=== PATIENT | female | born 1975 | race American Indian/Alaskan Native ===

== ENCOUNTER 2016-12-13 06:51 | Outpatient (CLI) | payer BC ==
--- NOTE | 2016-12-13 11:36 | XRay Report ---
Lumbar spine series: Lumbago. Positioning of the spine in the lateral projection is somewhat limited for evaluation interspaces but the combination of views shows no significant narrowing. The vertebral height, alignment, and bony mineralization is generally unremarkable. The apophyseal joints are well aligned and preserved. Impression: Suboptimal positioning. No abnormality identified.
== END 2016-12-13 06:52 | disposition home or self-care (01) ==
LOC: XRAY 06:51
PROVIDERS: ATTEND Internal Medicine
DX: M54.5 Low back pain (principal)
CPT/HCPCS: 72110

== ENCOUNTER 2017-07-16 10:07 | Outpatient (CLI) | payer BC ==
--- NOTE | 2017-07-16 14:43 | Mammography Report ---
BILATERAL MAMMOGRAM: FINDINGS: There are scattered fibroglandular densities (approximately 25%-50% glandular). No mass, distortion, suspicious calcification, or skin change is seen. No significant change when compared to exams dating back to 2015. CAD was utilized. IMPRESSION: Negative mammogram. There is no mammographic evidence of malignancy. RECOMMENDATION: Follow-up per ACS guidelines. BI-RADS CATEGORY: 1 = Negative ACR BI-RADS MAMMOGRAPHIC CODES: 0 = Needs additional imaging evaluation; 1 = Negative; 2 = Benign; 3 = Probably benign; 4 = Suspicious; 5 = Malignant; 6 = Known biopsy-proven malignancy COMMENT: 1. Dense breast tissue, i.e., adenosis, fibrocystic changes, etc., may obscure an underlying neoplasm. 2. Approximately 10% of cancers are not detected with mammography. 3. A negative mammography report should not delay biopsy if a clinically suspicious mass is present. COMMENT: Patient follow-up letters are generated in [employer].
== END 2017-07-16 10:08 | disposition home or self-care (01) ==
LOC: MAMMO 10:07
PROVIDERS: ATTEND Internal Medicine
DX: Z12.31 Encounter for screening mammogram for malignant neoplasm of breast (principal); I10 Essential (primary) hypertension; K21.9 Gastro-esophageal reflux disease without esophagitis
CPT/HCPCS: 77067; G0202

== ENCOUNTER 2017-09-04 19:17 | Emergency (ER) | payer BC ==
[2017-09-04] MEDS ORDERED: ASPIRIN ONE (20:37)
[2017-09-04] MEDS ORDERED: ASPIRIN PO ONE (20:44)
[2017-09-04 21:26] LABS: Basophils # (Auto) 0.1 K/mm3 (0.0-0.1); Basophils % (Auto) 0.6 % (0.0-1.8); Eosinophils # (Auto) 0.1 K/mm3 (0.0-0.4); Eosinophils % (Auto) 0.8 % (0.0-4.3); Hematocrit 33.3 % (30.3-42.9); Hemoglobin 10.9 gm/dl (10.1-14.3); Lymphocytes # (Auto) 2.7 K/mm3 (1.2-5.4); Lymphocytes % (Auto) 28.5 % (13.4-35.0); Mean Corpuscular HGB Conc 33 % (30-34); Mean Corpuscular Hemoglobin 25 pg (28-32); Mean Corpuscular Volume 78 fl (79-97); Monocytes # (Auto) 0.9 K/mm3 (0.0-0.8); Platelet Count 331 K/mm3 (140-440); Red Blood Count 4.29 M/mm3 (3.65-5.03); Red Cell Distribution Width 18.2 % (13.2-15.2)
[2017-09-04 21:49] LABS: BUN/Creatinine Ratio 27; Blood Urea Nitrogen 16 mg/dL (7-17); Calcium 8.6 mg/dL (8.4-10.2); Hemolysis Index 1
[2017-09-05] MEDS ORDERED: ULTRAM PO ONE (02:45)
[2017-09-05 02:53] VITALS: BP 161/95
--- NOTE | 2017-09-05 03:27 | Emergency Department Report ---
ED Chest Pain HPI - General Chief Complaint: Chest Pain Stated Complaint: CHEST TIGHTNESS/ARM/SHOULDER PAIN Time Seen by Provider: 09/05/17 02:32 Source: patient Mode of arrival: Ambulatory Limitations: No Limitations - History of Present Illness Initial Comments: 42-year-old female with a past medical history of GERD, sickle cell trait, and previous hypertension in month status post cholecystectomy that spontaneously resolved presents to the hospital complains of chest tightness since 2 PM. 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 Symptoms occur while at rest at work. Patient stated at the same time she developed a dry cough with chills. Pain starts in the chest and radiates to bilateral chest. Pain is worse to palpation, cough, and movement. Denies shortness of breath, nausea, vomiting, or diaphoresis. Patient denies smoking history. Her mother had [place] in her 60s but also had a history of diabetes and hypertension. Patient did receive a flu shot. Patient last saw her PMD Dr. Sanchez last year 2016. Severity scale (0 -10): 4 - Related Data Home Medications Medication Instructions Recorded Confirmed Last Taken Doxycycline Hyclate [Acticlate TAB] 150 mg PO DAILY 07/12/15 07/14/15 2 Weeks Ago ~06/30/15 Omeprazole [PriLOSEC] 20 mg PO QDAY 07/12/15 07/14/15 07/14/15 06:30 Zolpidem [Ambien] 10 mg PO QHS 07/12/15 07/14/15 07/12/15 Previous Rx's Medication Instructions Recorded Last Taken Type Doxycycline [Vibramycin CAP] 100 mg PO Q12HR #14 capsule 07/14/15 Unknown Rx Ibuprofen [Motrin] 800 mg PO Q8HR PRN #30 tablet 07/14/15 Unknown Rx medroxyPROGESTERone ACETATE 10 mg PO QDAY #10 tablet 07/14/15 Unknown Rx [Provera] Fluconazole [Diflucan TAB] 150 mg PO ONCE #1 tablet 11/02/15 Unknown Rx Loperamide [Imodium] 2 mg PO Q2HR PRN #20 capsule 11/02/15 Unknown Rx Ondansetron [Zofran TAB] 4 mg PO Q8HR PRN #20 tablet 11/02/15 Unknown Rx Benzonatate [Tessalon Perles] 100 mg PO Q8HR PRN #30 capsule 09/05/17 Unknown Rx amLODIPine [Norvasc] 5 mg PO DAILY #30 tab 09/05/17 Unknown Rx traMADol [Ultram 50 MG tab] 50 mg PO Q6HR PRN #20 tablet 09/05/17 Unknown Rx Allergies Allergy/AdvReac Type Severity Reaction Status Date / Time sulfamethoxazole AdvReac Severe BURNING,ITCHING,PAINFUL Verified 07/12/15 11:17 [From Bactrim] ALL OVER trimethoprim [From Bactrim] AdvReac Severe BURNING,ITCHING,PAINFUL Verified 11:17 ALL OVER Heart Score - HEART Score History: Slightly suspicious EKG: Normal Age: < 45 Risk factors: > 3 risk factors or hx of atherosclerotic disease Troponin: < normal limit HEART Score: 2 ED Review of Systems ROS: Stated complaint: CHEST TIGHTNESS/ARM/SHOULDER PAIN Other details as noted in HPI Comment: All other systems reviewed and negative Other: Constitutional: No fevers chills Eyes: No eye pain visual changes ENT: No ear pain or throat pain Neck: Denies pain Respiratory: Denies wheezing shortness of breath Cardiovascular: Denies palpitations, syncope GI: Denies abdominal pain, nausea, vomiting, diarrhea : Denies dysuria Musculoskeletal: Denies back pain, joint swelling Skin: Denies rash, lesions, erythema Neurologic: Denies headache, numbness, weakness Psychiatric: Denies suicidal ideation, hallucinations ED Past Medical Hx - Past Medical History Previous Medical History?: Yes Hx Hypertension: Yes (prior tx w/meds x1 mo then BP normalized) Hx GERD: Yes Hx Renal Disease: No Hx Sickle Cell Disease: Yes (SS trait only) Hx Headaches / Migraines: Yes Hx Asthma: No Additional medical history: boils - Surgical History Past Surgical History?: Yes Hx Cholecystectomy: Yes Additional Surgical History: Tubal ligation 2004 - Social History Smoking Status: Never Smoker Substance Use Type: None - Medications Home Medications: Home Medications Medication Instructions Recorded Confirmed Last Taken Type Doxycycline Hyclate [Acticlate TAB] 150 mg PO DAILY 07/12/15 07/14/15 2 Weeks Ago History ~06/30/15 Omeprazole [PriLOSEC] 20 mg PO QDAY 07/12/15 07/14/15 07/14/15 06:30 History Zolpidem [Ambien] 10 mg PO QHS 07/12/15 07/14/1507/12/15 History Doxycycline [Vibramycin CAP] 100 mg PO Q12HR #14 capsule 07/14/15 Unknown Rx Ibuprofen [Motrin] 800 mg PO Q8HR PRN #30 tablet 07/14/15 Unknown Rx medroxyPROGESTERone ACETATE 10 mg PO QDAY #10 tablet 07/14/15 Unknown Rx [Provera] Fluconazole [Diflucan TAB] 150 mg PO ONCE #1 tablet 11/02/15 Unknown Rx Loperamide [Imodium] 2 mg PO Q2HR PRN #20 capsule 11/02/15 Unknown Rx Ondansetron [Zofran TAB] 4 mg PO Q8HR PRN #20 tablet 11/02/15 Unknown Rx Benzonatate [Tessalon Perles] 100 mg PO Q8HR PRN #30 capsule 09/05/17 Unknown Rx amLODIPine [Norvasc] 5 mg PO DAILY #30 tab 09/05/17 Unknown Rx traMADol [Ultram 50 MG tab] 50 mg PO Q6HR PRN #20 tablet 09/05/17 Unknown Rx ED Physical Exam - General Limitations: No Limitations - Other Other exam information: General: No limitations, patient is alert in no acute distress Head exam: Atraumatic, normocephalic Eyes exam: Normal appearance ENT: Moist mucous membrane, normal oropharynx Neck exam: Normal inspection, full range of motion, no meningismus nontender Respiratory exam: Clear to auscultation bilateral, no wheezes, rales, crackles Cardiovascular: Normal rate and rhythm, sternal chest wall tenderness and mild right sided chest wall tenderness Abdomen: Soft, nondistended, and nontender, with normal bowel sounds, no rebound, or guarding Extremity: Full range of motion normal inspection no deformity, no calf tenderness or edema Back: Normal Inspection, full range of motion, no tenderness Neurologic: Alert, oriented x3, cranial nerves intact, no motor or sensory deficit Psychiatric: normal affect, normal mood Skin: Warm, dry, intact ED Course Vital Signs 09/04/17 09/05/17 20:30 02:52 Temperature 98.7 F Pulse Rate 81 79 Respiratory 16 17 Rate Blood Pressure 179/96 Blood Pressure 161/95 [Left] O2 Sat by Pulse 100 99 Oximetry - Reevaluation(s) Reevaluation #1: 09/05/17 04:30 Patient reports the pain improved with tramadol. ZEUS score - Zeus Score Age > 65: (0) No Aspirin use within the Past 7 Days: (0) No 3 or more CAD Risk Factors: (0) No 2 or more Angina events in past 24 hrs: (0) No Known CAD with more than 50% Stenosis: (0) No Elevated Cardiac Markers: (0) No ST Deviation Greater than 0.5mm: (0) No ZEUS Score: 0 ED Medical Decision Making - Lab Data Result diagrams: 09/04/17 21:13 09/04/17 21:13 Lab Results 09/04/17 09/04/17 09/04/17 Range/Units 21:13 21:13 23:43 WBC 9.4 (4.5-11.0) K/mm3 RBC 4.29 (3.65-5.03) M/mm3 Hgb 10.9 (10.1-14.3) gm/dl Hct 33.3 (30.3-42.9) % MCV 78 L (79-97) fl MCH 25 L (28-32) pg MCHC 33 (30-34) % RDW 18.2 H (13.2-15.2) % Plt Count 331 (140-440) K/mm3 Lymph % (Auto) 28.5 (13.4-35.0) % [place] % (Auto) 10.0 H (0.0-7.3) % Eos % (Auto) 0.8 (0.0-4.3) % Baso % (Auto) 0.6 (0.0-1.8) % Lymph # 2.7 (1.2-5.4) K/mm3 [place] # 0.9 H (0.0-0.8) K/mm3 Eos # 0.1 (0.0-0.4) K/mm3 Baso # 0.1 (0.0-0.1) K/mm3 Seg Neutrophils % 60.1 (40.0-70.0) % Seg Neutrophils # 5.7 (1.8-7.7) K/mm3 Sodium 140 (137-145) mmol/L Potassium 4.0 (3.6-5.0) mmol/L Chloride 103.1 (98-107) mmol/L Carbon Dioxide 22 (22-30) mmol/L Anion Gap 19 mmol/L BUN 16 (7-17) mg/dL Creatinine 0.6 L (0.7-1.2) mg/dL Estimated GFR > 60 ml/min BUN/Creatinine Ratio 27 % Glucose 100 (65-100) mg/dL Calcium 8.6 (8.4-10.2) mg/dL Troponin T < 0.010 < 0.010 (0.00-0.029) ng/mL - EKG Data -: EKG Interpreted by Me EKG shows normal: sinus rhythm (81), axis (11), QRS complexes (90), ST-T waves ( no stemi/t inv LVH) - EKG Data When compared to previous EKG there are: previous EKG unavailable 09/05/17 04:47 Repeat EKG performed at 4:37 AM does not show any acute changes compared to previous - Radiology Data Radiology results: report reviewed read by radiologist: cxr: naf - Medical Decision Making Chest pain is atypical and reproducible on palpation and patient reports a mild cough. Clinically suggestive of costochondritis and possible early viral syndrome. EKG shows LVH even though patient denies long-standing hypertension she is hypertensive in the ED on 2 measurements. Norvasc 5 mg will be initiated. Patient's pain improved with tramadol. She has 3 sets of negative cardiac enzymes. No flipped T waves, ST elevation, or ST segment depression. Patient scores low on both ZEUS and Heart score. Repeat EKG reveals no acute changes. Patient was discharged home with symptomatic treatment for pain in addition to the Norvasc. She has appointment scheduled with her PMD in 8 days and was instructed to call to see if she could be seen sooner and to return if symptoms worsen. - Differential Diagnosis mi, costochondritis, atypical cp, pnemonia, viral syndrome Critical Care Time: No Critical care attestation.: If time is entered above; I have spent that time in minutes in the direct care of this critically ill patient, excluding procedure time. ED Disposition Clinical Impression: Costochondritis, acute, Cough, HTN (hypertension) Disposition: - TO HOME OR SELFCARE Is pt being admited?: No Does the pt Need Aspirin: No Condition: Stable Instructions: Hypertension (ED), Costochondritis (ED), Cold Symptoms (ED) Additional Instructions: If your cold symptoms develop make sure that you only take [id number] medications that are safe with people and hypertension. This includes the Coricidin HBP cough and cold medicine brand. You have been started on a low- dose blood pressure medication. Continue to monitor and record at home and follow up with your doctor for further management. Take the medication as prescribed. Return is symptoms worsen as indicated by your discharge instructions Prescriptions: amLODIPine [Norvasc] 5 mg PO DAILY #30 tab Benzonatate [Tessalon Perles] 100 mg PO Q8HR PRN #30 capsule PRN Reason: Cough traMADol [Ultram 50 MG tab] 50 mg PO Q6HR PRN #20 tablet PRN Reason: Pain Referrals: RC SANCHEZ MD [Primary Care Provider] - 3-5 Days Time of Disposition: 04:49
--- NOTE | 2017-09-05 03:38 | XRay Report ---
FINAL REPORT EXAM: XR CHEST ROUTINE 2V HISTORY: cp, cough, chills COMPARISON: None available. FINDINGS:: Frontal and lateral views of the chest obtained. Heart upper limits normal in size. Shallow inspiration.. No focal consolidation or effusion. No pneumothorax. Visualized bony thorax is grossly intact. IMPRESSION:: No focal consolidation.
[2017-09-05] MEDS ORDERED: NORVASC PO ONE (04:28)
== END 2017-09-05 05:01 | disposition home or self-care (01) ==
LOC: ED 19:17
DX: M94.0 Chondrocostal junction syndrome [Tietze] (principal); I10 Essential (primary) hypertension; K21.9 Gastro-esophageal reflux disease without esophagitis; G43.909 Migraine, unspecified, not intractable, without status migrainosus; Z88.1 Allergy status to other antibiotic agents; Z88.2 Allergy status to sulfonamides
CPT/HCPCS: 36415; 71046; 80048; 84484; 85025; 93005; 93010; 99284

== ENCOUNTER 2017-09-19 09:41 | Outpatient (CLI) | payer BC ==
--- NOTE | 2017-09-19 13:30 | Magnetic Resonance Report ---
MRI LUMBAR SPINE WITHOUT CONTRAST: 09/19/17 CLINICAL: Lumbar radiculopathy. TECHNIQUE: Sagittal and axial T1 and T2, and sagittal STIR sequences a 1.5 Genoveva magnet. FINDINGS: Normal body height, alignment and disc spaces. Decreased T2 disc signal L2-L5 but most prominent at L4-5. The marrow signal is normal. Normal conus medullaris terminating at T12. L1-2: Intact. L2-3: Small focal left foraminal disc protrusion producing mild left neural foraminal narrowing and displacement of the exiting left L2 nerve root. L3-4: Small left foraminal disc-osteophyte producing mild left neural foraminal stenosis and slight displacement of the exiting L3 nerve root. L4-5: Small left foraminal disc-osteophyte producing mild left neural foraminal stenosis and no displacement of the exiting left L4 nerve root. L5-S1: Intact. IMPRESSION: Mild degenerative disease with small disc protrusions and small disc-osteophytes on the left side at L2-3 through L4-5. Mild impingement of the exiting left L2 and L3 nerve roots.
== END 2017-09-19 09:42 | disposition home or self-care (01) ==
LOC: MRI 09:41
PROVIDERS: ATTEND Internal Medicine
DX: M51.36 Other intervertebral disc degeneration, lumbar region (principal); M51.26 Other intervertebral disc displacement, lumbar region; M54.15 Radiculopathy, thoracolumbar region; M25.80 Other specified joint disorders, unspecified joint
CPT/HCPCS: 72148

== ENCOUNTER 2017-11-26 09:37 | Outpatient (CLI) | payer BC ==
--- NOTE | 2017-11-26 10:53 | Ultrasound Report ---
ULTRASOUND TRANSVAGINAL HISTORY: Intramural leiomyoma of uterus. COMPARISON: Pelvic ultrasound dated 10/14/13. TECHNIQUE: Transabdominal and transvaginal ultrasound with color doppler interrogation. FINDINGS: Uterus: The uterus is anteverted. The uterus measures 8.6 x 4.7 x 5.2 cm. A single 1.2 x 1.0 cm intramural fibroid is identified in the posterior fundal region. No additional fibroids are detected. Normal cervix. Endometrium: 5 mm. No abnormality. Right ovary: 2.8 x 2.0 x 2.4 cm. No focal abnormality. Left ovary: 3.1 x 1.0 x 1.9 cm. No focal abnormality. No pelvic fluid or mass is identified. Normal color doppler interrogation. IMPRESSION: Small intramural uterine fibroid in the posterior fundal region as described. Otherwise, unremarkable transvaginal ultrasound.
== END 2017-11-26 09:38 | disposition home or self-care (01) ==
LOC: US 09:37
PROVIDERS: ATTEND Obstetrics & Gynecology
DX: D25.1 Intramural leiomyoma of uterus (principal)
CPT/HCPCS: 76830

== ENCOUNTER 2017-12-03 11:36 | Outpatient (CLI) | payer BC ==
--- NOTE | 2017-12-03 16:28 | Ultrasound Report ---
LEFT DIGITAL DIAGNOSTIC MAMMOGRAM with CAD and LEFT BREAST ULTRASOUND: 12/03/17 11:36:00 CLINICAL: A palpable left breast lump. COMPARISON:07/16/17 mammogram FINDINGS: The breast is mostly fatty with a few residual fibroglandular densities. An asymmetry is identified at the palpable marker in the inner breast on the spot magnification view but the other views are negative.No mass, architectural distortion or suspicious calcifications. Ultrasound of the left breast was performed in the area where the patient describes a lump at 6 o'clock. The ultrasound demonstrates normal fibroglandular and fatty structures with no mass, cyst or shadowing. IMPRESSION: Probably benign findings. BI-RADS CATEGORY: 3 - - Probably Benign RECOMMENDATION: A short term (3 month) followup left mammogram and left breast ultrasound if needed. The patient should be scheduled at [facility] for the followup so that a physician will be on hand at the time of the examination. ACR BI-RADS MAMMOGRAPHIC CODES: 0 = Needs additional imaging evaluation; 1 = Negative; 2 = Benign; 3 = Probably benign; 4 = Suspicious; 5 = Malignant; 6 = Known biopsy-proven malignancy COMMENT: 1. Dense breast tissue, i.e., adenosis, fibrocystic changes, etc., may obscure an underlying neoplasm. 2. Approximately 10% of cancers are not detected with mammography. 3. A negative mammography report should not delay biopsy if a clinically suspicious mass is present. COMMENT: Patient follow-up letters are generated by our [employer] application.
== END 2017-12-03 11:37 | disposition home or self-care (01) ==
LOC: MAMMO 11:36
PROVIDERS: ATTEND Internal Medicine
DX: N63.20 Unspecified lump in the left breast, unspecified quadrant (principal); N64.89 Other specified disorders of breast

== ENCOUNTER 2017-12-11 11:06 | Day surgery (SDC) | payer BC ==
[~2017-12-11 11:06] MED LIST: WATER FOR IRRIG STERILE IR ONE
[2017-12-11] MEDS ORDERED: NACL 0.9% 1000 ML 1,000 ML ONE (11:35)
--- NOTE | 2017-12-11 12:42 | Anesthesia Day of Surgery ---
Anesthesia Day of Surgery - Day of Surgery Patient Examined: Yes Patient H&P Reviewed: Yes Patient is NPO: Yes
--- NOTE | 2017-12-11 12:42 | Anesthesia Consultation ---
Anesthesia Consult and Med Hx Date of service: 12/11/17 - Airway Anesthetic Teeth Evaluation: Good ROM Head & Neck: Adequate Mental/Hyoid Distance: Adequate Mallampati Class: Class II Intubation Access Assessment: Probably Good - Pulmonary Exam CTA: Yes - Cardiac Exam Cardiac Exam: RRR - Pre-Operative Health Status ASA Pre-Surgery Classification: ASA3 Proposed Anesthetic Plan: MAC - Pulmonary Hx Smoking: No Hx Asthma: No Hx Sleep Apnea: Yes (non compliant w/ CPAP) - Cardiovascular System Hx Hypertension: Yes (prior tx w/meds x1 mo then BP normalized) - Central Nervous System Hx Psychiatric Problems: No - Gastrointestinal Hx Gastroesophageal Reflux Disease: Yes (Took Prilosec this am) - Endocrine Hx Renal Disease: No Hx Non-Insulin Dependent Diabetes: No - Hematic Hx Sickle Cell Disease: Yes (SS trait only) - Other Systems Hx Alcohol Use: Yes (occas) Hx Cancer: No Hx Obesity: Yes (BMI=35.6)
[2017-12-11] MEDS ORDERED: NACL 0.9% 1000 ML 1,000 ML IV SCH (13:00)
[2017-12-11] MEDS ORDERED: DIPRIVAN 10 MG/ML IV ONE ×2 (13:37→14:17)
[2017-12-11] MEDS ORDERED: WATER FOR IRRIG STERILE IR ONE (13:49)
--- NOTE | 2017-12-11 14:40 | Post Anesthesia Evaluation ---
- Post Anesthesia Evaluation Patient Participated: Yes Airway Patent: Yes Stable Respiratory Function: Yes Nausea/Vomiting: No Temp > 96.8F: Yes Pain Manageable: Yes Adequeate Hydration: Yes Anesthesia Complications: No Block Receding Appropriately: Not Applicable Patient on Ventilator: No
[2017-12-11 14:42] VITALS: BP 135/77
--- NOTE | 2017-12-11 14:56 | Operative Report ---
PROCEDURE: ERCP with cold biopsy and Bar dilatation. INDICATIONS: 1. Dysphagia. 2. GERD. MEDICATIONS: Propofol per [employer]. COMPLICATIONS: None. DESCRIPTION OF PROCEDURE: The patient was brought to the procedure suite. The patient had the procedure discussed with her at length. All risks, complications, and benefits discussed, after which the patient signed for the procedure to be performed. The patient was placed in left lateral decubitus position. Mouth block was placed in the patient's oral cavity. After adequate sedation medication as above, endoscope was introduced into the mouth and brought to level of the second portion of duodenum. Retroflexion view performed. The patient's vital signs remained stable throughout the procedure. FINDINGS: There was noted to be a 3 cm hiatal hernia at GE junction, which was 38 cm from the gums. There was a mild obstructing ring noted at the GE junction. The esophagus otherwise showed there was mildly inflamed Z line noted with biopsies taken and sent to pathology. The remaining esophagus otherwise appeared to be normal. There was mild antral gastritis noted. Biopsies were taken and sent to pathology. The remaining stomach otherwise appeared to be normal. Duodenum appeared to be normal. Retroflexion view performed in the stomach showed no other pathology other than noted above. After inspection, Bar dilatation using a 60-Latvian balloon was performed. Postprocedure, the patient was satisfactory. The patient tolerated the procedure well. No complications during the procedure. IMPRESSION: 1. Hiatal hernia. 2. Schatzki's ring, status post Bar dilatation. 3. Irregular Z line with biopsies performed. 4. Gastritis, biopsies performed. 5. Otherwise, normal EGD. RECOMMENDATIONS: 1. Follow up biopsy results. 2. Stool for H. pylori, if positive, we will treat. 3. PPI daily. 4. Follow up in clinic in 6-12 weeks. JOB# [id number] [facility]
== END 2017-12-11 11:07 | disposition home or self-care (01) ==
LOC: GIO 11:06
PROVIDERS: ATTEND Internal Medicine Gastroenterology
DX: K22.2 Esophageal obstruction (principal); K21.0 Gastro-esophageal reflux disease with esophagitis; K44.9 Diaphragmatic hernia without obstruction or gangrene; K22.8 Other specified diseases of esophagus; K29.50 Unspecified chronic gastritis without bleeding; G47.33 Obstructive sleep apnea (adult) (pediatric); I10 Essential (primary) hypertension; D57.3 Sickle-cell trait; E66.9 Obesity, unspecified; Z68.35 Body mass index [BMI] 35.0-35.9, adult; Z99.89 Dependence on other enabling machines and devices; Z88.1 Allergy status to other antibiotic agents; Z91.19 Patient's noncompliance with other medical treatment and regimen; Z88.2 Allergy status to sulfonamides; Z88.6 Allergy status to analgesic agent
CPT/HCPCS: 43239; 43249; 88305; 88342; J2704; J7030

== ENCOUNTER 2018-08-15 08:20 | Outpatient (CLI) | payer BC ==
--- NOTE | 2018-08-15 09:11 | Mammography Report ---
BILATERAL DIGITAL DIAGNOSTIC MAMMOGRAM with CAD: 08/15/18 08:20:00 CLINICAL: Bilateral sporadic breast pain and followup left palpable breast lump. She did not return for a three month followup of a left palpable lump as recommended 12/03/17. COMPARISON:12/03/17 left mammogram and 07/16/17 bilateral mammogram. FINDINGS: The breasts are heterogeneously dense, which may obscure small masses.No mass, architectural distortion or suspicious calcifications. IMPRESSION: Negative mammogram. BI-RADS CATEGORY: 1 - - Negative RECOMMENDATION: Clinical followup and routine mammographic screening in one year. ACR BI-RADS MAMMOGRAPHIC CODES: 0 = Needs additional imaging evaluation; 1 = Negative; 2 = Benign; 3 = Probably benign; 4 = Suspicious; 5 = Malignant; 6 = Known biopsy-proven malignancy COMMENT: 1. Dense breast tissue, i.e., adenosis, fibrocystic changes, etc., may obscure an underlying neoplasm. 2. Approximately 10% of cancers are not detected with mammography. 3. A negative mammography report should not delay biopsy if a clinically suspicious mass is present. COMMENT: Patient follow-up letters are generated by our [employer] application.
== END 2018-08-15 08:21 | disposition home or self-care (01) ==
LOC: SPVWC 08:20
PROVIDERS: ATTEND Internal Medicine
DX: R92.8 Other abnormal and inconclusive findings on diagnostic imaging of breast (principal); I10 Essential (primary) hypertension; K21.9 Gastro-esophageal reflux disease without esophagitis; Z90.49 Acquired absence of other specified parts of digestive tract
CPT/HCPCS: 77066

== ENCOUNTER 2018-10-03 08:00 | Outpatient (CLI) | payer BC ==
--- NOTE | 2018-10-03 21:38 | Treadmill Report ---
INDICATION FOR THE PROCEDURE: Chest pain. ORDERING PHYSICIAN: Milton Barnett MD FINDINGS: There is no scintigraphic evidence of myocardial ischemia. The left ventricle is normal in size. The left ventricular systolic function is measured at 58%. There is normal wall motion and wall thickening. CONCLUSION: Normal perfusion scan. JOB# [id number] DON/SMITA
== END 2018-10-03 08:01 | disposition home or self-care (01) ==
LOC: CARD 08:00
PROVIDERS: ATTEND Internal Medicine
DX: R07.9 Chest pain, unspecified (principal); I10 Essential (primary) hypertension; J44.9 Chronic obstructive pulmonary disease, unspecified; E66.9 Obesity, unspecified; Z90.49 Acquired absence of other specified parts of digestive tract
CPT/HCPCS: 78452; 93017; 93306; A9502

== ENCOUNTER 2019-08-21 07:08 | Outpatient (CLI) | payer BC ==
[2019-08-21 07:53] LABS: Alanine Aminotransferase 18 units/L (7-56); Albumin 3.6 g/dL (3.9-5); BUN/Creatinine Ratio 12; Blood Urea Nitrogen 7 mg/dL (7-17); Calcium 8.8 mg/dL (8.4-10.2); Hemolysis Index 8; LDL Cholesterol,Direct 103 mg/dL (50-130)
[2019-08-21 08:01] LABS: Hemoglobin 10.2 gm/dl (10.1-14.3); Mean Corpuscular HGB Conc 32 % (30-34); Mean Corpuscular Volume 73 fl (79-97); Platelet Count 451 K/mm3 (140-440); Red Blood Count 4.39 M/mm3 (3.65-5.03); Red Cell Distribution Width 18.4 % (13.2-15.2)
--- NOTE | 2019-08-21 09:02 | Mammography Report ---
DIGITAL SCREENING MAMMOGRAM WITH CAD, 08/21/2019 INDICATION: Routine screening mammography. TECHNIQUE: Digital bilateral 2D mammography was obtained in the craniocaudal and mediolateral obliq ue projections. This examination was interpreted with the benefit of Computer-Aided Detection analysi s. COMPARISON: 08/15/2018 FINDINGS: Breast Density: The breasts are heterogeneously dense, which may obscure small masses. Right asymmetries on both views require additional imaging. No architectural distortion or suspicious calcifications of the right breast. There is no evidence of dominant mass, suspicious calcifications or architectural distortion in the left breast. IMPRESSION: Right asymmetries requiring additional imaging. Recommend recall for right spot compressi on views and right breast ultrasound if needed. Follow up recommendation: Routine yearly Category 0: Incomplete. Needs additional imaging evaluation and/or prior mammograms for comparison. A "normal" or negative report should not discourage follow up or biopsy of a clinically significant f inding. A written summary of these findings will be mailed to the patient. The patient will be entered into a mammography reporting system which will generate a reminder letter for the patient's next appointmen t at the appropriate interval. The [employer] recommends yearly mammograms starting at age 40 and continuing as l elda as a woman is in good health. Breast MRI is recommended for women with an approximate 20-25% or greater lifetime risk of breast cancer, including women with a strong family history of breast or ova tristian cancer or who have been treated for Hodgkin's disease. Signer Name: Bang Brenner MD Signed: 08/21/2019 8:58 AM Workstation Name: [id number]
[2019-08-21 10:00] LABS: Chol/HDL Ratio 2.92 %; HDL Cholesterol 56 mg/dL (40-59)
[2019-08-25 11:34] LABS: Vitamin D, 25-OH, D2 <4 ng/mL
== END 2019-08-21 07:09 | disposition home or self-care (01) ==
LOC: MAMMO 07:08
PROVIDERS: ATTEND Obstetrics & Gynecology
DX: Z12.31 Encounter for screening mammogram for malignant neoplasm of breast (principal); Z13.220 Encounter for screening for lipoid disorders
CPT/HCPCS: 36415; 77067; 80053; 80061; 82306; 83036; 84443; 85027

== ENCOUNTER 2019-08-26 06:48 | Outpatient (CLI) | payer BC ==
--- NOTE | 2019-08-26 09:00 | Mammography Report ---
Right DIGITAL DIAGNOSTIC MAMMOGRAM HISTORY: Finding noted in the right breast on recent screening mammogram. TECHNIQUE: Additional mammographic views including spot and full ML views focused in the right upper outer breast posteriorly were obtained. COMPARISON: 08/21/2019, 07/16/2017, 06/27/2016, 06/01/2015, 06/02/2014. FINDINGS: Breast Density: Scattered fibroglandular appearance of the breast tissue. Mammographic views focused in the right upper outer posterior breast show the previously noted focal asymmetry does not persist. There is stable mammographic appearance in this region compared to multip le prior mammograms. No evidence of malignancy. IMPRESSION: Stable mammographic appearance without evidence of malignancy. Routine screening mammogram in one ye ar is recommended. BIRADS 1: Negative. FURTHER INFORMATION: According to the [employer], yearly mammograms are recommend ed starting at age 40 and continuing as long as a woman is in good health. Clinical Breast Exams shou ld be part of a periodic health exam-about every 3 years for women in their 20s and 30s and every yea r for women 40 and over. Breast self exam is an option for women starting in their 20s. Any breast ch petty noted on a breast self exam should be reported promptly to the patient's healthcare provider. Br east MRI is recommended for women with an approximately 20-25% or greater lifetime risk of breast can cer, including women with a strong family history of breast or ovarian cancer and women who have been treated for Hodgkin's disease. A negative Mammography report should not discourage follow up or biopsy of a clinically significant f inding and/or abnormality. Dense breast tissue may obscure small neoplasms. The patient will be entered into a reminder system with a target due date for the next screening mamm ogram. Signer Name: Donovan Jara MD Signed: 08/26/2019 8:55 AM Workstation Name: [id number]
== END 2019-08-26 06:49 | disposition home or self-care (01) ==
LOC: MAMMO 06:48
PROVIDERS: ATTEND Obstetrics & Gynecology
DX: R92.8 Other abnormal and inconclusive findings on diagnostic imaging of breast (principal)

== ENCOUNTER 2019-09-03 10:37 | Outpatient (CLI) | payer BC | END 2019-09-03 10:38 | disposition home or self-care (01) | LOC: LAB 10:37 | PROVIDERS: ATTEND Obstetrics & Gynecology | DX: Z11.3 Encounter for screening for infections with a predominantly sexual mode of transmission (principal); A59.01 Trichomonal vulvovaginitis | CPT/HCPCS: 36415; 86592; 86689; 86803 ==

== ENCOUNTER 2019-11-15 08:29 | Inpatient (IN) | payer BC ==
--- NOTE | 2019-11-15 10:03 | XRay Report ---
CHEST 1 VIEW INDICATION: productive cough, SOB, fever, +COVID contact. COMPARISON: 05/28/2018 FINDINGS: Support devices: None. Heart: Within normal limits. Lungs/Pleura: Patchy multifocal airspace disease throughout the lungs bilaterally. No pleural effusio n. Additional findings: None. IMPRESSION: 1. Pulmonary findings as above. Signer Name: Sven Mayer MD Signed: 11/15/2019 9:58 AM Workstation Name: [id number]
[2019-11-15 10:14] LABS: Basophils % (Auto) 0.7 % (0.0-1.8); Eosinophils % (Auto) 0.3 % (0.0-4.3); Hematocrit 31.3 % (30.3-42.9); Hemoglobin 10.4 gm/dl (10.1-14.3); Lymphocytes # (Auto) 1.2 K/mm3 (1.2-5.4); Lymphocytes % (Auto) 19.1 % (13.4-35.0); Mean Corpuscular HGB Conc 33 % (30-34); Mean Corpuscular Volume 68 fl (79-97); Monocytes # (Auto) 0.8 K/mm3 (0.0-0.8); Monocytes % (Auto) 12.5 % (0.0-7.3); Platelet Count 239 K/mm3 (140-440); Red Cell Distribution Width 18.8 % (13.2-15.2)
[2019-11-15 10:32] LABS: Albumin 3.5 g/dL (3.9-5); Calcium 8.8 mg/dL (8.4-10.2)
[2019-11-15] MEDS ORDERED: SODIUM CHLORIDE 0.9% 1000 ML 1,000 ML IV ONE (10:52)
[2019-11-15] MEDS ORDERED: cefTRIAXone/NS 1 GM/50 ML 1 GM/50 ML BAG IV ONE (10:53)
[2019-11-15] MEDS ORDERED: AZITHROMYCIN 500 MG in SODIUM CHLORIDE 0.9% 250ML 250 ML IV ONE (10:53)
--- NOTE | 2019-11-15 11:03 | Emergency Department Report ---
HPI - General Chief Complaint: Dyspnea/Respdistress Time Seen by Provider: 11/15/19 09:52 - HPI HPI: Room 26 The patient is a 44-year-old female present with a chief complaint of of cough. Patient states she has had a cough productive of clear sputum for 1 week. Patient also admits to nausea vomiting diarrhea for 1 week. Patient admits to fever 101 F. The patient states approximate 1 week ago her and her were tested for COVID-19 and her test came back positive. The patient states her test came back negative but her symptoms persist. ED Past Medical Hx - Past Medical History Previous Medical History?: Yes Hx Hypertension: Yes (prior tx w/meds x1 mo then BP normalized) Hx GERD: Yes Hx Sickle Cell Disease: No (SS trait only) Hx Headaches / Migraines: Yes Additional medical history: boils - Surgical History Past Surgical History?: Yes Hx Cholecystectomy: Yes Additional Surgical History: Tubal ligation 2004 - Family History Family history: no significant - Social History Smoking Status: Never Smoker Substance Use Type: None (Denies illicit drug use) - Medications Home Medications: Home Medications Medication Instructions Recorded Confirmed Last Taken Type Doxycycline Hyclate [Acticlate TAB] 150 mg PO DAILY 07/12/15 07/14/15 2 Weeks Ago History ~06/30/15 Omeprazole [PriLOSEC] 20 mg PO QDAY 07/12/15 07/14/15 07/14/15 06:30 History Zolpidem [Ambien] 10 mg PO QHS 07/12/15 07/14/15 07/12/15 History DOXYCYCLINE Hyclate [Vibramycin 100 mg PO Q12HR #14 capsule 07/14/15 Unknown Rx CAP] Ibuprofen [Motrin] 800 mg PO Q8HR PRN #30 tablet 07/14/15 Unknown Rx medroxyPROGESTERone ACETATE 10 mg PO QDAY #10 tablet 07/14/15 Unknown Rx [Provera] Fluconazole [Diflucan TAB] 150 mg PO ONCE #1 tablet 11/02/15 Unknown Rx Loperamide [Imodium] 2 mg PO Q2HR PRN #20 capsule 11/02/15 Unknown Rx Ondansetron [Zofran TAB] 4 mg PO Q8HR PRN #20 tablet 11/02/15 Unknown Rx Benzonatate [Tessalon Perles] 100 mg PO Q8HR PRN #30 capsule 09/05/17 Unknown Rx amLODIPine [Norvasc] 5 mg PO DAILY #30 tab 09/05/17 Unknown Rx traMADoL [Ultram 50 MG tab] 50 mg PO Q6HR PRN #20 tablet 09/05/17 Unknown Rx Naproxen [Naprosyn] 500 mg PO BID #14 tablet 05/28/18 Unknown Rx ED Review of Systems ROS: Stated complaint: COUGH Other details as noted in HPI Constitutional: fever Eyes: denies: eye pain ENT: denies: throat pain Respiratory: cough. denies: shortness of breath Endocrine: no symptoms reported Gastrointestinal: nausea, vomiting, diarrhea Neurological: denies: headache Physical Exam - Physical Exam Vital Signs: Vital Signs 11/15/19 11/15/19 11/15/19 08:44 09:28 09:45 Temperature 99.5 F Pulse Rate 133 H 127 H Respiratory 22 23 Rate Blood Pressure 125/68 133/75 O2 Sat by Pulse 91 92 95 Oximetry 11/15/19 11/15/19 10:00 10:15 Temperature 100.4 F H Pulse Rate 121 H Respiratory 25 H Rate Blood Pressure 120/76 O2 Sat by Pulse 94 Oximetry Physical Exam: GENERAL: The patient is well-developed well-nourished female lying on stretcher not appearing to be in acute distress. [] HEENT: Normocephalic. Atraumatic. Extraocular motions are intact. Patient has moist mucous membranes. NECK: Supple. Trachea midline CHEST/LUNGS: There is no respiratory distress noted. HEART/CARDIOVASCULAR: Regular. There is tachycardia. There is no gallop rub or murmur. ABDOMEN: Abdomen is soft, nontender. Patient has normal bowel sounds. There is no abdominal distention. SKIN: There is no rash. There is no diaphoresis. NEURO: The patient is awake, alert, and oriented. The patient is cooperative. The patient has normal speech MUSCULOSKELETAL: There is no evidence of acute injury. ED Course Vital Signs 11/15/19 11/15/19 11/15/19 08:44 09:28 09:45 Temperature 99.5 F Pulse Rate 133 H 127 H Respiratory 22 23 Rate Blood Pressure 125/68 133/75 O2 Sat by Pulse 91 92 95 Oximetry 11/15/19 11/15/19 10:00 10:15 Temperature 100.4 F H Pulse Rate 121 H Respiratory 25 H Rate Blood Pressure 120/76 O2 Sat by Pulse 94 Oximetry ED Medical Decision Making - Lab Data Result diagrams: 11/15/19 10:01 11/15/19 10:01 - Radiology Data Radiology results: report reviewed (Chest x-ray), image reviewed (Chest x-ray) interpreted by me: Chest [id number] pneumonia Findings [facility] [address] [place] [address] XRay Report Signed Patient: MYRON LOPEZ MR#: [id number] : 1975 Acct:[id number] Age/Sex: 44 / F ADM Date: 11/15/19 Loc: ED Attending Dr: Ordering Physician: ELIZABETH PICHARDO MD Date of Service: 11/15/19 Procedure(s): XR chest 1V ap Accession Number(s): [id number] cc: ELIZABETH PICHARDO MD Fluoro Time In Minutes: CHEST 1 VIEW INDICATION: productive cough, SOB, fever, +COVID contact. COMPARISON: 05/28/2018 FINDINGS: Support devices: None. Heart: Within normal limits. Lungs/Pleura: Patchy multifocal airspace disease throughout the lungs bilaterally. No pleural effusion. Additional findings: None. IMPRESSION: 1. Pulmonary findings as above. Signer Name: Sven Mayer MD Signed: 11/15/2019 9:58 AM Workstation Name: [id number] Transcribed By: JW Dictated By: Sven Mayer MD Electronically Authenticated By: Sven Mayer MD Signed Date/Time: 11/15/19957 DD/ 7 TD/TT: - Differential Diagnosis COVID-19, pneumonia, bronchitis, gastroenteritis Critical care attestation.: If time is entered above; I have spent that time in minutes in the direct care of this critically ill patient, excluding procedure time. ED Disposition Clinical Impression: Bilateral pneumonia, Suspected COVID-19 virus infection Disposition: OP ADMIT IP TO THIS HOSP Is pt being admited?: Yes Does the pt Need Aspirin: No Condition: Fair Instructions: Bacterial Pneumonia (ED) Referrals: PRIMARY CARE, [Primary Care Provider] - 3-5 Days Time of Disposition: 11:05 (Hospitalist paged (Dr. Mallory))
--- NOTE | 2019-11-15 12:04 | History and Physical Report ---
History of Present Illness Chief complaint: I cannot stop coughing History of present illness: 44 YO Female with HTN, GERD, Obesity presents to ED for evaluation. Patient states that she had experienced a productive cough of clear sputum over the past week with persistent symptoms over the same timeframe. Patient also acknowledges fever to 101 F, nausea, and multiple loose stools over the past week, malaise, and generalized weakness. Patient knowledges exposure to known COVID-19 positive patient which is her . Patient transported to [facility] via private vehicle. Patient seen and evaluated in the emergency department. Lab and imaging studies reviewed. Patient found to have bilateral pneumonia as well as symptoms suspicious for COVID-19 infection. Patient initiated on pneumonia protocol as well as COVID-19 protocol and admitted to medical floor. No prior admission for review. All medication listed at time of admission has been reconciled. Patient denies chest pain, palpitation, syncope, trauma, hemoptysis, unintentional weight loss, night sweats. Past History Past Medical History: GERD, hypertension, other (See HPI) Past Surgical History: cholecystectomy, Other (Tubal ligation) Social history: , lives with family Family history: hypertension Medications and Allergies Allergies Allergy/AdvReac Type Severity Reaction Status Date / Time sulfamethoxazole AdvReac Severe BURNING,ITCHING,PAINFUL Verified 07/12/15 11:17 [From Bactrim] ALL OVER trimethoprim [From Bactrim] AdvReac Severe BURNING,ITCHING,PAINFUL Verified 07/12/15 11:17 ALL OVER Home Medications Medication Instructions Recorded Confirmed Last Taken Type Diphenoxylate/Atropine [Lomotil] 1 tab PO Q8H 11/15/19 11/15/19 Unknown History Ergocalciferol (Vitamin D2) 50,000 unit PO QWEEK 11/15/19 11/15/19 Unknown History [Vitamin D2] Ibuprofen [Motrin] 800 mg PO Q8HR PRN 11/15/19 11/15/19 Unknown History Promethazine [Phenergan] 25 mg PO Q4HR PRN 11/15/19 11/15/19 Unknown History Zolpidem Tartrate 10 mg PO QHS 11/15/19 11/15/19 Unknown History Active Meds: Active Medications Hydroxychloroquine Sulfate (Plaquenil) 400 mg PO BID ZACKERY Stop: 11/15/19 22:01 Hydroxychloroquine Sulfate (Plaquenil) 200 mg PO BID ZACKERY Stop: 11/19/19 22:01 Exam - Constitutional Vitals: Temp Pulse Resp BP Pulse Ox 100.4 F H 121 H 25 H 120/76 94 11/15/19 10:15 11/15/19 10:00 11/15/19 10:00 11/15/19 10:00 11/15/19 10:00 General appearance: Present: mild distress, obese - EENT Eyes: Present: PERRL ENT: hearing intact, clear oral mucosa - Neck Neck: Present: supple, normal ROM - Respiratory Respiratory effort: normal Respiratory: bilateral: diminished, rhonchi - Cardiovascular Heart Sounds: Present: S1 & S2. Absent: rub, click - Extremities Extremities: pulses symmetrical, No edema Peripheral Pulses: within normal limits - Abdominal General gastrointestinal: Present: soft, non-tender, non-distended, normal bowel sounds Female genitourinary: Present: normal - Integumentary Integumentary: Present: clear, warm, dry - Musculoskeletal Musculoskeletal: gait normal, strength equal bilaterally - Psychiatric Psychiatric: appropriate mood/affect, intact judgment & insight - Neurologic Neurologic: CNII-XII intact, moves all extremities Results - Labs CBC & Chem 7: 11/15/19 10:01 11/15/19 10:01 Labs: Abnormal lab results 11/15/19 11/15/19 11/15/19 Range/Units 10:01 10:01 10:01 MCV 68 L (79-97) fl MCH 23 L (28-32) pg RDW 18.8 H (13.2-15.2) % [place] % (Auto) 12.5 H (0.0-7.3) % D-Dimer 832.26 H (0-234) ng/mlDDU Carbon Dioxide 18 L (22-30) mmol/L BUN 24 H (7-17) mg/dL Creatinine 1.3 H (0.7-1.2) mg/dL Glucose 124 H (65-100) mg/dL Lactate Dehydrogenase 396 H (91-180) units/L C-Reactive Protein 7.00 H (0.00-1.30) mg/dL Albumin 3.5 L (3.9-5) g/dL Assessment and Plan - Patient Problems (1) Bilateral pneumonia Current Visit: Yes Status: Acute Plan to address problem: Pneumonia protocol, IV antibiotic therapy, CBC, CMP, blood culture, supplemental oxygen, supportive care. (2) DAVID (acute kidney injury) Current Visit: Yes Status: Acute Plan to address problem: IVF resuscitation therapy, bmp, repeat bmp in am. (3) Suspected COVID-19 virus infection Current Visit: Yes Status: Acute Plan to address problem: COVID-19 protocol, infectious disease service consulted, supportive care. Sleep in prone position overnight. (4) HTN (hypertension) Current Visit: Yes Status: Acute Qualifiers: Hypertension type: essential hypertension Qualified Code(s): I10 - Essential (primary) hypertension Plan to address problem: Monitor BP q shift, continue medical management (5) GERD (gastroesophageal reflux disease) Current Visit: Yes Status: Acute Qualifiers: Esophagitis presence: without esophagitis Qualified Code(s): K21.9 - Gastro-esophageal reflux disease without esophagitis Plan to address problem: PPI therapy, supportive care. (6) Obesity hypoventilation syndrome Current Visit: Yes Status: Acute Plan to address problem: Submental oxygen, supportive care, pulmonary toilet, (7) DVT prophylaxis Current Visit: Yes Status: Acute Plan to address problem: SCD to BLE while in bed, Pt is ambulatory
[2019-11-15] MEDS ORDERED: ACETAMINOPHEN 325 MG TAB PO PRN (12:05)
[2019-11-15] MEDS ORDERED: NON-FORMULARY EACH (Ondansetron [Zofran Tab] 4 MG) PO PRN (12:06)
[2019-11-15] MEDS: HYDROXYCHLOROQUINE 200 MG TAB PO SCH ×2 (12:15→21:01)
[2019-11-15] MEDS: BENZONATATE 100 MG CAP PO PRN (15:42)
[2019-11-15] MEDS: ONDANSETRON 4 MG/2 ML INJ IV PRN (19:20)
[2019-11-15] MEDS ORDERED: HYDROcodone/HOMATROPINE 5-1.5MG /5 ML ORAL LIQD UNIT DOSE PO ONE (21:00)
[2019-11-15] MEDS: ZOLPIDEM 5 MG TAB PO SCH (21:01)
[2019-11-15] MEDS ORDERED: NON-FORMULARY EACH (Zolpidem 10 MG) PO SCH (22:00)
[2019-11-15] MEDS ORDERED: ZOLPIDEM TARTRATE 10 MG PO SCH (22:00)
[2019-11-15] MEDS ORDERED: ZOLPIDEM 5 MG TAB PO SCH (22:00)
[2019-11-16] MEDS: BENZONATATE 100 MG CAP PO PRN ×2 (02:59→11:57)
[2019-11-16 04:05] LABS: Hematocrit 29.5 % (30.3-42.9); Hemoglobin 9.7 gm/dl (10.1-14.3); Mean Corpuscular HGB Conc 33 % (30-34); Platelet Count 259 K/mm3 (140-440); Red Blood Count 4.28 M/mm3 (3.65-5.03); Red Cell Distribution Width 18.9 % (13.2-15.2)
[2019-11-16 04:11] LABS: Mean Corpuscular Volume 69 fl (79-97)
[2019-11-16 04:26] LABS: Calcium 8.8 mg/dL (8.4-10.2)
[2019-11-16 04:58] LABS: Basophils % (Manual) 0 % (0.0-1.8); Eosinophils % (Manual) 0 % (0.0-4.3); Total Cells Counted 100
[2019-11-16 05:06] LABS: Target Cells Rare; Tear Drop Cells Rare
[2019-11-16 05:07] LABS: Burr Cells Rare
[2019-11-16 05:08] LABS: Platelet Estimate Consistent w Auto
[2019-11-16] MEDS: PANTOPRAZOLE 20 MG TAB PO SCH (09:22)
[2019-11-16] MEDS: HYDROXYCHLOROQUINE 200 MG TAB PO SCH ×2 (09:22→21:09)
[2019-11-16] MEDS: cefTRIAXone/NS 2 GM/100 ML 2 GM/100 ML BAG IV SCH (09:23)
[2019-11-16] MEDS: amLODIPine 5 MG TAB PO SCH (09:23)
[2019-11-16] MEDS ORDERED: NON-FORMULARY EACH (Omeprazole [Prilosec] 20 MG) PO SCH (10:00)
[2019-11-16] MEDS ORDERED: NON-FORMULARY EACH (Medroxyprogesterone Acetate [Provera] 10 MG) PO SCH (10:00)
--- NOTE | 2019-11-16 11:38 | Progress Note ---
Assessment and Plan / Bilateral pneumonia with COVID 19 cont rocephin and plaquineil, supplemental oxygen, supportive care. /Acute hypoxemia, further evaluate with exercise ambulatory test / DAVID (acute kidney injury) IVF resuscitation therapy, repeat bmp in am. /COVID-19 virus infection cont plaquinil, infectious disease service consulted, supportive care. Sleep in prone position overnight. monitor inflammatory markers / HTN (hypertension) Monitor BP q shift, continue medical management / GERD (gastroesophageal reflux disease) PPI therapy, supportive care. /Morbid Obesity wt reduction diet and exercise when clinically improves as outpt / DVT prophylaxis SCD to BLE while in bed, Pt is ambulatory Physical exam Limited physical exam due to COVID 19 pandemic and limited PPE Constitutional:alert in NAD Neck: limited due to lack of PPE Oral:limited due to lack of PPE Cardiovascular: limited due to lack of PPE Respiratory: ame rhonchi per NS GI: limited due to lack of PPE Musculoskeletal: limited due to lack of PPE Skin: No rash or abscess Hem/Lymphatic: limited due to lack of PPE Psych: no agitated Neurological: no agitated Subjective Date of service: 11/16/19 Interval history: Patient seen and examined. Medical records and medication list reviewed. No acute event overnight noted by the RN. Patient complains of cough and difficulty breathing on ambulation. Patient is tolerating diet. Discussed plan of care at bedside with patient. Objective - Constitutional Vitals: Vital Signs - 12hr 11/16/19 11/16/19 06:37 09:20 Temperature 98.6 F 99.2 F Pulse Rate 104 H 107 H Respiratory 20 18 Rate Blood Pressure 145/80 117/73 [Right] O2 Sat by Pulse 94 95 Oximetry - Labs CBC & Chem 7: 11/16/19 03:36 11/16/19 03:36 Labs: Abnormal lab results 11/15/19 11/16/19 11/16/19 Range/Units 09:52 03:36 03:36 Hgb 9.7 L (10.1-14.3) gm/dl Hct 29.5 L (30.3-42.9) % MCV 69 L (79-97) fl MCH 23 L (28-32) pg RDW 18.9 H (13.2-15.2) % Monocytes % (Manual) 9.0 H (0.0-7.3) % Carbon Dioxide 20 L (22-30) mmol/L Glucose 127 H (65-100) mg/dL Coronavirus (PCR) Positive A (Negative)
[2019-11-16] MEDS: medroxyPROGESTERone ACETATE 5 MG TAB PO SCH (11:57)
[2019-11-16] MEDS: ONDANSETRON 4 MG/2 ML INJ IV PRN (13:50)
--- NOTE | 2019-11-16 14:38 | Consultation ---
History of Present Illness - Reason for Consult Consult date: 11/16/19 COVID-19 Requesting physician: ELIZABETH PICHARDO - History of Present Illness The patient is a 44-year-old female with hypertension, GERD, obesity came into the hospital on 11/15/2019 with complaints of cough and shortness of breath along with fever worsening over 1 week duration. Patient with known exposure to positive coronavirus patient. Upon admission, she was noted to have a low-grade fever along with hypoxia that needed nasal cannula oxygen. COVID-19 test is positive. Infectious diseases was consulted for additional evaluation. Patient afebrile today. Remains on oxygen. Review of Systems: reviewed in the chart, unable to obtain directly due to PPE shortage and pre servation Past History Past Medical History: GERD, hypertension, other (See HPI) Past Surgical History: cholecystectomy, Other (Tubal ligation) Social history: , lives with family Family history: hypertension Medications and Allergies Allergies Allergy/AdvReac Type Severity Reaction Status Date / Time sulfamethoxazole AdvReac Severe BURNING,ITCHING,PAINFUL Verified 07/12/15 11:17 [From Bactrim] ALL OVER trimethoprim [From Bactrim] AdvReac Severe BURNING,ITCHING,PAINFUL Verified 07/12/15 11:17 ALL OVER Home Medications Medication Instructions Recorded Confirmed Last Taken Type Diphenoxylate/Atropine [Lomotil] 1 tab PO Q8H 11/15/19 11/15/19 Unknown History Ergocalciferol (Vitamin D2) 50,000 unit PO QWEEK 11/15/19 11/15/19 Unknown History [Vitamin D2] Ibuprofen [Motrin] 800 mg PO Q8HR PRN 11/15/19 11/15/19 Unknown History Promethazine [Phenergan] 25 mg PO Q4HR PRN 11/15/19 11/15/19 Unknown History Zolpidem Tartrate 10 mg PO QHS 11/15/19 11/15/19 Unknown History Active Meds: Active Medications Acetaminophen (Tylenol) 650 mg PO Q4H PRN PRN Reason: Pain MILD(1-3)/Fever >100.5/ARMENDARIZ Amlodipine Besylate (Amlodipine) 5 mg PO DAILY ZACKERY Last Admin: 11/16/19 09:23 Dose: 5 mg Documented by: Benzonatate (Tessalon Perles) 100 mg PO Q8HR PRN PRN Reason: Cough Last Admin: 11/16/19 11:57 Dose: 100 mg Documented by: Ergocalciferol (Vitamin D2) 50,000 unit PO Sa [facility] Guaifenesin (Mucinex Er) 600 mg PO BID [facility] Hydroxychloroquine Sulfate (Plaquenil) 200 mg PO BID [facility] Stop: 11/19/19 22:01 Last Admin: 11/16/19 09:22 Dose: 200 mg Documented by: Ceftriaxone Sodium (Rocephin/Ns 2 Gm/100 Ml) 2 gm in 100 mls @ 200 mls/hr IV Q24H [facility]; Protocol Last Admin: 11/16/19 09:23 Dose: 200 mls/hr Documented by: Medroxyprogesterone Acetate (Provera) 10 mg PO QDAY [facility] Last Admin: 11/16/19 11:57 Dose: 10 mg Documented by: Ondansetron HCl (Zofran) 4 mg IV Q8H PRN PRN Reason: Nausea And Vomiting Last Admin: 11/15/19 19:20 Dose: 4 mg Documented by: Pantoprazole Sodium (Protonix) 20 mg PO QDAY [facility] Last Admin: 11/16/19 09:22 Dose: 20 mg Documented by: Sodium Chloride (Sodium Chloride Flush Syringe 10 Ml) 10 ml IV BID [facility] Last Admin: 11/16/19 12:24 Dose: 10 ml Documented by: Sodium Chloride (Sodium Chloride Flush Syringe 10 Ml) 10 ml IV PRN PRN PRN Reason: LINE FLUSH Zolpidem Tartrate (Ambien) 10 mg PO QHS [facility] Last Admin: 11/15/19 21:01 Dose: 10 mg Documented by: Physical Examination - Physical Exam Narrative exam: Physical Exam (reviewed in chart due to PPE conservation) Constitutional: limited due to PPE conservation strategy Head, Ears, Nose: limited due to PPE conservation strategy Eyes: limited due to PPE conservation strategy Neck: limited due to PPE conservation strategy Oral: limited due to PPE conservation strategy Cardiovascular: limited due to PPE conservation strategy Respiratory: limited due to PPE conservation strategy GI: limited due to PPE conservation strategy Musculoskeletal: limited due to PPE conservation strategy Skin: limited due to PPE conservation strategy Hem/Lymphatic: limited due to PPE conservation strategy Psych: limited due to PPE conservation strategy Neurological: limited due to PPE conservation strategy - Constitutional Vitals: Vital Signs Temp Pulse Resp BP Pulse Ox 99.2 F 107 H 18 119/78 95 11/16/19 09:20 11/16/19 09:20 11/16/19 09:20 11/16/19 12:24 11/16/19 09:20 Temperature -Last 24 Hours Temperature 99.2 F Temperature 98.6 F Temperature 98.9 F Temperature 98.8 F Results - Labs CBC & Chem 7: 11/16/19 03:36 11/16/19 03:36 Labs: Abnormal lab results 11/15/19 11/16/19 11/16/19 Range/Units 09:52 03:36 03:36 Hgb 9.7 L (10.1-14.3) gm/dl Hct 29.5 L (30.3-42.9) % MCV 69 L (79-97) fl MCH 23 L (28-32) pg RDW 18.9 H (13.2-15.2) % Monocytes % (Manual) 9.0 H (0.0-7.3) % Carbon Dioxide 20 L (22-30) mmol/L Glucose 127 H (65-100) mg/dL Coronavirus (PCR) Positive A (Negative) - Imaging and Cardiology Chest x-ray: report reviewed, image reviewed (b/l patchy infiltrates, more peripheral) Assessment and Plan Cultures: 11/15/2019 blood culture: In progress 11/15/2019 coronavirus PCR: Positive A/P: 44-year-old female with hypertension, GERD, obesity: #Bilateral pneumonia secondary to COVID-19: Markers slightly elevated. Procalcitonin is negative. COVID-19 PCR is positive. #Acute hypoxic respiratory failure: On nasal cannula oxygen. #Obesity Recs: Plaquenil for 5 days Ceftriaxone discontinued trend ferritin, LDH, d-dimer, CRP every 2-3 days for risk stratification and to assess disease progression If Oxygen requirements stable to improving and no fever along with stable inflammatory markers, likely discharge home in 1-2 days Mehran Randolph MD, FACP [facility] ([facility] C: [phone] O: [phone] F: [phone]
[2019-11-16] MEDS: guaiFENesin ER 600 MG TAB PO SCH ×2 (15:31→21:09)
[2019-11-16] MEDS: ZOLPIDEM 5 MG TAB PO SCH (21:09)
[2019-11-17] MEDS: BENZONATATE 100 MG CAP PO PRN ×2 (02:00→13:21)
[2019-11-17] MEDS: amLODIPine 5 MG TAB PO SCH (09:20)
[2019-11-17] MEDS: guaiFENesin ER 600 MG TAB PO SCH (09:20)
[2019-11-17] MEDS: medroxyPROGESTERone ACETATE 5 MG TAB PO SCH (09:20)
[2019-11-17] MEDS: PANTOPRAZOLE 20 MG TAB PO SCH (09:20)
[2019-11-17] MEDS: HYDROXYCHLOROQUINE 200 MG TAB PO SCH (09:20)
[2019-11-17] MEDS: cefTRIAXone/NS 2 GM/100 ML 2 GM/100 ML BAG IV SCH (09:21)
[2019-11-17 12:34] VITALS: BP 115/63
[2019-11-17] MEDS: ONDANSETRON 4 MG/2 ML INJ IV PRN (13:21)
--- NOTE | 2019-11-17 13:31 | Discharge Summary ---
Providers - Providers Date of Admission: 11/15/19 12:05 Date of discharge: 11/17/19 Attending physician: CHIQUITA GAITAN 11/15/19 11:16 Consult to Physician [CONS] Urgent Comment: DR KYLEE WALKER W/DR GARCIA @1114 Consulting Provider: RIC GARCIA Physician Instructions: Reason For Exam: Probable COVID-19 Primary care physician: PLANNING COORDINATOR Hospitalization Condition: Fair Pertinent studies: CXR Hospital course: The patient is a 44-year-old female with hypertension, GERD, obesity came into the hospital on 11/15/2019 with complaints of cough and shortness of breath along with fever worsening over 1 week duration. Patient with known exposure to positive coronavirus patient. Upon admission, she was noted to have a low-grade fever along with hypoxia that needed nasal cannula oxygen. COVID-19 test is positive. She was started on Plaquenil, assess for home O2 requirement. Patient was then discharged home in stable condition. Patient should self- quarantine for 14 days from symptom beginning. Patients should return to hospital regardless if they have worsening fevers or respiratory status. Please avoid NSAIDs. Discharge diagnosis and Mx: / Bilateral pneumonia with COVID 19 /Acute hypoxemia, due to pneumonia, further evaluated with exercise ambulatory test / DAVID (acute kidney injury), resolved with IV fluid /COVID-19 virus infection cont plaquinil, infectious disease service consulted, supportive care. Sleep in prone position overnight. Monitor inflammatory markers and trended down / HTN (hypertension) Monitor BP q shift, continue medical management / GERD (gastroesophageal reflux disease) PPI therapy, supportive care. /Microcytic anemia, outpt f/u, h/h stable /Morbid Obesity wt reduction diet and exercise when clinically improves as outpt / DVT prophylaxis SCD to BLE while in bed, Pt is ambulatory Physical exam: Limited physical exam due to COVID 19 pandemic and limited PPE Constitutional:alert in NAD Neck: limited due to lack of PPE Oral:limited due to lack of PPE Cardiovascular: limited due to lack of PPE Respiratory: ame rhonchi per NS GI: limited due to lack of PPE Musculoskeletal: limited due to lack of PPE Skin: No rash or abscess Hem/Lymphatic: limited due to lack of PPE Psych: no agitated Neurological: no agitated Disposition: - TO HOME OR SELFCARE Time spent for discharge: 34 minutes Core Measure Documentation - Palliative Care Palliative Care/ Comfort Measures: Not Applicable - Core Measures Any of the following diagnoses?: none Exam - Constitutional Vitals: Temp Pulse Resp BP Pulse Ox 98.0 F 93 H 20 115/63 95 11/17/19 11:38 11/17/19 11:38 11/17/19 11:38 11/17/19 11:38 11/17/19 11:38 Plan Activity: advance as tolerated Weight Bearing Status: Non-Weight Bearing Diet: low fat Additional Instructions: condition. Patient should self-quarantine for 14 days from symptom beginning. Patients should return to hospital regardless if they have worsening fevers or respiratory status. Please avoid NSAIDs. Follow up with: PRIMARY CARE, [Primary Care Provider] - 3-5 Days TAMICA TRONCOSO MD [Staff Physician] - 7 Days Prescriptions: guaiFENesin ER [Mucinex ER] 600 mg PO BID #20 tablet Hydroxychloroquine [Plaquenil] 200 mg PO BID #4 tablet
--- NOTE | 2019-11-17 13:52 | Progress Note ---
Assessment and Plan Cultures: 11/15/2019 blood culture: no growth thus far 11/15/2019 coronavirus PCR: Positive A/P: 44-year-old female with hypertension, GERD, obesity: #Bilateral pneumonia secondary to COVID-19: Markers minimally elevated. Procalcitonin is negative. COVID-19 PCR is positive. #Acute hypoxic respiratory failure: On nasal cannula oxygen. #Obesity Recs: Complete 5 total days of Plaquenil Day 3 today Remains stable with low inflammatory markers and on room air, OK for discharge. Home oxygen evaluation if needed Mehran Randolph MD, FACP [facility] C: [phone] O: [phone] F: [phone] Subjective Date of service: 11/17/19 Interval history: No fever. On room air. Objective - Exam Narrative Exam: Physical Exam (reviewed in chart due to PPE conservation) Constitutional: limited due to PPE conservation strategy Head, Ears, Nose: limited due to PPE conservation strategy Eyes: limited due to PPE conservation strategy Neck: limited due to PPE conservation strategy Oral: limited due to PPE conservation strategy Cardiovascular: limited due to PPE conservation strategy Respiratory: limited due to PPE conservation strategy GI: limited due to PPE conservation strategy Musculoskeletal: limited due to PPE conservation strategy Skin: limited due to PPE conservation strategy Hem/Lymphatic: limited due to PPE conservation strategy Psych: limited due to PPE conservation strategy Neurological: limited due to PPE conservation strategy - Constitutional Vitals: Vital Signs Temp Pulse Resp BP Pulse Ox 98.0 F 93 H 20 115/63 95 11/17/19 11:38 11/17/19 11:38 11/17/19 11:38 11/17/19 11:38 11/17/19 11:38 Temperature -Last 24 Hours Temperature 98.0 F Temperature 98.3 F Temperature 99.1 F Temperature 99.3 F - Labs CBC & Chem 7: 11/16/19 03:36 11/16/19 03:36
[2019-11-22] MEDS ORDERED: ERGOCALCIFEROL (VIT D2) 50,000 UNIT CAP PO SCH (10:00)
== END 2019-11-17 18:40 | disposition home or self-care (01) | DRG 177 ==
LOC: ED 08:29 → 3A 12:05
PROVIDERS: ADMIT Internal Medicine; ATTEND Internal Medicine
DX: U07.1 COVID-19 (principal); J96.01 Acute respiratory failure with hypoxia; J12.89 Other viral pneumonia; N17.9 Acute kidney failure, unspecified; E66.2 Morbid (severe) obesity with alveolar hypoventilation; I10 Essential (primary) hypertension; K21.9 Gastro-esophageal reflux disease without esophagitis; Z68.39 Body mass index [BMI] 39.0-39.9, adult; Z90.49 Acquired absence of other specified parts of digestive tract; Z98.51 Tubal ligation status; Z82.49 Family history of ischemic heart disease and other diseases of the circulatory system; Z88.2 Allergy status to sulfonamides; Z79.899 Other long term (current) drug therapy
CPT/HCPCS: 36415; 71045; 80048; 80053; 82140; 82728; 83615; 84145; 85007; 85025; 85379; 86140; 87040; 87635; 93005; 93010; 94760; G0378; J0456; J0696; J2405; J7030; J7050

== ENCOUNTER 2020-09-08 11:56 | Outpatient (CLI) | payer BC ==
--- NOTE | 2020-09-08 13:38 | Mammography Report ---
DIGITAL SCREENING MAMMOGRAM WITH CAD, 09/08/2020 CLINICAL INFORMATION / INDICATION: Routine screening mammography. TECHNIQUE: Digital bilateral 2D mammography was obtained in the craniocaudal and mediolateral obliqu e projections. This examination was interpreted with the benefit of Computer-Aided Detection analysis . COMPARISON: 08/21/2019, 08/15/2018 FINDINGS: Breast Density: There are scattered areas of fibroglandular density. No dominant mass, suspicious calcifications, or architectural distortion in either breast. IMPRESSION: No mammographic evidence of malignancy. Follow up recommendation: Routine yearly BI-RADS Category 1: Negative. A "normal" or negative report should not discourage follow up or biopsy of a clinically significant f inding. A written summary of these findings will be mailed to the patient. The patient will be entered into a mammography reporting system which will generate a reminder letter for the patient's next appointmen t at the appropriate interval. The [employer] recommends yearly mammograms starting at age 40 and continuing as l elda as a woman is in good health. Breast MRI is recommended for women with an approximate 20-25% or greater lifetime risk of breast cancer, including women with a strong family history of breast or ova tristian cancer or who have been treated for Hodgkin's disease. Signer Name: Bri Bailon MD Signed: 09/08/2020 1:34 PM Workstation Name: [id number]
== END 2020-09-08 11:57 | disposition home or self-care (01) ==
LOC: MAMMO 11:56
PROVIDERS: ATTEND Internal Medicine
DX: Z12.31 Encounter for screening mammogram for malignant neoplasm of breast (principal)
CPT/HCPCS: 77067

== ENCOUNTER 2020-09-24 12:24 | Outpatient (CLI) | payer BC ==
[2020-09-24 12:56] LABS: Hematocrit 40.8 % (30.3-42.9); Hemoglobin 13.6 gm/dl (10.1-14.3); Mean Corpuscular HGB Conc 33 % (30-34); Mean Corpuscular Volume 83 fl (79-97); Platelet Count 375 K/mm3 (140-440); Red Blood Count 4.92 M/mm3 (3.65-5.03); Red Cell Distribution Width 16.4 % (13.2-15.2)
[2020-09-24 13:37] LABS: Hepatitis C Virus Antibody Non-Reactive (NonReactive)
[2020-09-24 13:39] LABS: Alanine Aminotransferase 17 units/L (7-56); Albumin 4.2 g/dL (3.9-5); Blood Urea Nitrogen 12 mg/dL (7-17); Chol/HDL Ratio 3.23 %; HDL Cholesterol 60 mg/dL (40-59); Hemolysis Index 7; LDL Cholesterol,Direct 133 mg/dL (50-130)
[2020-09-24 13:43] LABS: BUN/Creatinine Ratio 20
== END 2020-09-24 12:25 | disposition home or self-care (01) ==
LOC: LAB 12:24
PROVIDERS: ATTEND Obstetrics & Gynecology
DX: Z13.0 Encounter for screening for diseases of the blood and blood-forming organs and certain disorders involving the immune mechanism (principal); Z13.29 Encounter for screening for other suspected endocrine disorder; Z13.220 Encounter for screening for lipoid disorders
CPT/HCPCS: 36415; 80053; 80061; 82652; 83036; 84443; 85027; 86592; 86689; 86706; 86803

== ENCOUNTER 2020-11-09 08:00 | Outpatient (CLI) | payer BC ==
--- NOTE | 2020-11-09 10:24 | Magnetic Resonance Report ---
MRI BREAST BILATERAL WITH AND WITHOUT CONTRAST, 11/09/2020 CLINICAL INFORMATION / INDICATION: FAMILY HX OF BREAST CA Z80.3. TECHNIQUE: Axial T1 and T2-weighted fat sat images were obtained precontrast. Gadolinium-based contra st was injected intravenously and serial axial T1 weighted images with fat saturation were obtained. 3-D MIP projections, kinetic analysis, and subtraction imaging were utilized to evaluate. A dedicated 8-channel breast coil was used for image acquisition. COMPARISON: Prior mammogram 09/08/2020 FINDINGS: BREAST DENSITY: There are scattered areas of fibroglandular density. BACKGROUND ENHANCEMENT: Low level background enhancement within both breasts. RIGHT BREAST: No dominant mass or suspicious area of enhancement in the right breast. LEFT BREAST: No dominant mass or suspicious area of enhancement in the left breast. AXILLAE: No pathologically enlarged axillary lymph nodes. ADDITIONAL FINDINGS: Limited imaging of the thorax and upper abdomen demonstrates no focal abnormalit y. IMPRESSION: 1. No MRI evidence of malignancy. Follow up recommendation: Back to schedule. BI-RADS Category 1: Negative. Signer Name: Justyna John MD Signed: 11/09/2020 10:20 AM Workstation Name: [id number]
== END 2020-11-09 08:01 | disposition home or self-care (01) ==
LOC: SPVIMAG 08:00
PROVIDERS: ATTEND Surgery
DX: R92.2 Inconclusive mammogram (principal); Z80.3 Family history of malignant neoplasm of breast
CPT/HCPCS: A9575; C8908; 77049

== ENCOUNTER 2020-12-02 10:33 | Outpatient (CLI) | payer BC ==
--- NOTE | 2020-12-02 13:15 | XRay Report ---
Lumbar spine 3 views INDICATION: Low back pain IMPRESSION: Multilevel discogenic and facet arthropathy particularly at L5-S1 causing moderate bilate ral neural foraminal narrowing. Signer Name: Elio Lugo MD Signed: 12/02/2020 1:11 PM Workstation Name: [email or web address] [email or web address] [id number]
--- NOTE | 2020-12-02 13:15 | XRay Report ---
Left knee 4 views INDICATION: Left knee pain IMPRESSION: The left knee is intact without fracture or dislocation. No significant knee effusion. Janice lobo early degenerative changes of the medial femorotibial compartment. Signer Name: Elio Lugo MD Signed: 12/02/2020 1:11 PM Workstation Name: [id number]
== END 2020-12-02 10:34 | disposition home or self-care (01) ==
LOC: XRAY 10:33
PROVIDERS: ATTEND Internal Medicine
DX: M17.12 Unilateral primary osteoarthritis, left knee (principal); M51.37 Other intervertebral disc degeneration, lumbosacral region; M48.07 Spinal stenosis, lumbosacral region
CPT/HCPCS: 72100

== ENCOUNTER 2021-03-08 09:25 | Outpatient (CLI) | payer BC | END 2021-03-08 09:26 | disposition home or self-care (01) | LOC: LAB 09:25 | PROVIDERS: ATTEND Internal Medicine | DX: Z13.29 Encounter for screening for other suspected endocrine disorder (principal) | CPT/HCPCS: 36415; 84443 ==

== ENCOUNTER 2022-04-28 09:53 | Outpatient (CLI) | payer BC ==
--- NOTE | 2022-04-28 15:56 | Magnetic Resonance Report ---
MR lumbar spine wo con INDICATION / CLINICAL INFORMATION: M47.816 RADICULOPATHY,LUMBAR SPINE REGION, LB & BILAT. LEG PAIN. TECHNIQUE: Multisequence, multiplanar images of the lumbar spine were obtained. COMPARISON: None available. FINDINGS: ALIGNMENT: Mild left convex scoliosis with the apex around the L3 level. VERTEBRAE:No aggressive osseous marrow signal. Vertebral body heights are preserved. VISUALIZED SPINAL CORD: The conus appears within normal limits. RLOAQ-MR-HENXT ANALYSIS: L1-2: No significant spinal canal stenosis. No significant foraminal narrowing. L2-3: Mild left neural foraminal narrowing secondary to leftward asymmetric disc bulge. L3-4: Mild leftward asymmetric disc bulge causing mild left foraminal narrowing. L4-5: Mild bilateral foraminal narrowing due to facet hypertrophy and disc bulge. L5-S1: No significant spinal canal stenosis. No significant foraminal narrowing. PARASPINAL SOFT TISSUES: No significant abnormality. ADDITIONAL FINDINGS: None. IMPRESSION: Mild degenerative findings as described. No nerve root impingement seen. Definitions used for the purposes of this report: Lumbar canal stenosis (Park et al. Br J Radiol. 2012;86(0891):[id number]): No stenosis: No attenuation of the CSF spaces Mild stenosis: Anterior CSF space mildly obliterated Moderate stenosis: Anterior CSF space is moderately obliterated; cauda equina partially aggregated Severe stenosis: Marked compression of the dural sac; cauda equina cannot be visually and a ppear as a bundle Lumbar lateral recess stenosis (Masoud et al. World J Radiol. 2017 December 24;9(5):223-229): No stenosis: Nerve root is bathed in fluid Mild stenosis: Narrowing of the lateral recess without root deviation Moderate stenosis: Narrowing of the recess with nerve root deviation Severe stenosis: Compression of the nerve root Lumbar neural foraminal stenosis (Shiv et al. AJR Am J Roentgenol. 2010 Oct;194(4):1095-8): No stenosis: No attenuation of the fat in the foramen Mild stenosis: Loss of the fat in the foramen on two sides Moderate stenosis: Loss of the fat in the foramen all four sides Severe stenosis: Loss of the fat in the foramen all four sides and compression of the nerve root Signer Name: Sandip Li MD Signed: 04/28/2022 3:52 PM Workstation Name: [id number]
== END 2022-04-28 09:54 | disposition home or self-care (01) ==
LOC: MRI 09:53
PROVIDERS: ATTEND Orthopaedic Surgery
DX: M47.26 Other spondylosis with radiculopathy, lumbar region (principal); M51.26 Other intervertebral disc displacement, lumbar region
CPT/HCPCS: 72148